=== PATIENT | female | born 1975 | race Two or more races ===

== ENCOUNTER 2018-12-17 22:12 | Emergency (ER) | payer BC, OTHER ==
[~2018-12-17] VITALS: Ht 165.1 cm; Wt 102.1 kg
[2018-12-18 01:36] VITALS: BP 146/95
[2018-12-18] MEDS ORDERED: METHOCARBAMOL 500 MG TAB PO ONE (02:45)
[2018-12-18] MEDS ORDERED: ACETAMINOPHEN/CODEINE#3 (300/30mg) TAB PO ONE (02:45)
== END 2018-12-18 03:00 | disposition home or self-care (01) ==
LOC: EDSEX 22:17 → ER 22:17
DX: S22.42XA Multiple fractures of ribs, left side, initial encounter for closed fracture (principal); S93.401A Sprain of unspecified ligament of right ankle, initial encounter; V43.52XA Car driver injured in collision with other type car in traffic accident, initial encounter; Y93.89 Activity, other specified; Y99.8 Other external cause status; Y92.410 Unspecified street and highway as the place of occurrence of the external cause
CPT/HCPCS: 71045; 72040; 73610